=== PATIENT | male | born 1990 | race Caucasian/White ===

== ENCOUNTER 2025-07-14 11:57 | Inpatient (IN) | payer OTHER ==
[~2025-07-14] VITALS: Ht 175.3 cm; Wt 106.0 kg
[2025-07-14 12:53] LABS: PLATELET COUNT (AUTO) 230 K/uL (150-450); RED BLOOD CELL COUNT(AUTO) 4.97 MIL/uL (4.50-5.90); RED CELL DISTRIBUTION WIDTH 13.2 % (11.5-14.5); WHITE BLOOD COUNT (AUTO) 14.4 K/uL (4.5-11.0)
[2025-07-14 13:03] LABS: CALCIUM, TOTAL 8.8 mg/dL (8.8-10.5); CREATININE 1.06 mg/dL (0.60-1.30); GLOMERULAR FILTR. RATE CALC > 60 mL/min (>60); GLUCOSE,RANDOM 118 mg/dL (70-110); SODIUM SERUM 135 mmol/L (136-145); UREA NITROGEN, BLOOD 22 mg/dL (7-18)
[2025-07-14 13:09] LABS: ASPARTATE AMINOTRANSFERASE 109.0 U/L (15-37); TOTAL PROTEIN, SERUM 7.9 g/dL (6.4-8.2)
[2025-07-14] MEDS ORDERED: IOHEXOL 350 MG/ML 100 ML VIAL ONE (15:07)
[2025-07-14] MEDS ORDERED: 0.9% SODIUM CHLORIDE 10 ML SYRINGE IVP ONE (15:07)
[2025-07-14] MEDS ORDERED: SODIUM CHLORIDE 0.9% 100 ML ONE (15:07)
[2025-07-14] MEDS: SODIUM CHLORIDE 0.9% 2,000 ML IV ONE (15:32)
[2025-07-14] MEDS: ONDANSETRON HCL 4 MG/2 ML VIAL IVP ONE (15:34)
[2025-07-14] MEDS: KETOROLAC TROMETHAMINE 30 MG/ML VIAL IVP ONE (15:35)
[2025-07-14] MEDS: MORPHINE SULFATE 4 MG/ML SYRINGE IVP ONE (15:36)
[2025-07-14] MEDS ORDERED: BISACODYL 10 MG RECTAL RECTAL SUPPOSITORY PR PRN (15:45)
[2025-07-14] MEDS ORDERED: ALBUTEROL SULFATE 2.5 MG/0.5 ML NEB SOLUTION NEB PRN (15:45)
[2025-07-14] MEDS ORDERED: MAGNESIUM HYDROXIDE SUSPENSION 30 ML UDCUP PO PRN (15:45)
[2025-07-14] MEDS ORDERED: IPRATROPIUM BROMIDE 0.5 MG/2.5 ML NEB SOLUTION NEB PRN (15:45)
[2025-07-14] MEDS ORDERED: MORPHINE SULFATE 2 MG/ML SYRINGE IVP PRN (15:45)
[2025-07-14] MEDS ORDERED: ONDANSETRON HCL 4 MG/2 ML VIAL IVP PRN (15:45)
[2025-07-14 15:47] LABS: APPEARANCE,URINE HAZY (CLEAR); GLUCOSE, URINE (UA) NEGATIVE (NEGATIVE); LEUKOCYTE ESTERASE ,URINE NEGATIVE (NEGATIVE); NITRATE,URINE NEGATIVE (NEGATIVE); OCCULT BLOOD,URINE LARGE (NEGATIVE); SPECIFIC GRAVITIY, URINE 1.017 (1.003-1.030)
[2025-07-14 16:01] LABS: SQUAMOUS EPITHELIAL CELL,UR Few /LPF (None Seen)
[2025-07-14 17:08] VITALS: BP 134/88; PULSE 65; RESP 18; TEMP 98.2; O2SAT 98
[2025-07-14] MEDS: HYDROCODONE/ACETAMINOPHEN 5-325 MG TABLET PO PRN (17:33)
[2025-07-14] MEDS: MORPHINE SULFATE 4 MG/ML SYRINGE IVP PRN (18:40)
[2025-07-14 18:43] VITALS: BP 135/92; PULSE 75; RESP 20; O2SAT 99
[2025-07-14] MEDS: DOCUSATE SODIUM 100 MG CAPSULE PO SCH (19:59)
[2025-07-14 20:31] VITALS: BP 146/106; PULSE 76; RESP 18; TEMP 98.6; O2SAT 96
[2025-07-14 22:22] VITALS: BP 143/89; RESP 18; O2SAT 96
[2025-07-15] MEDS: SODIUM CHLORIDE 0.9% 1,000 ML IV SCH (02:27)
[2025-07-15 04:09] VITALS: BP 130/77; PULSE 82; RESP 18; TEMP 98.7; O2SAT 98
[2025-07-15] MEDS: MORPHINE SULFATE 4 MG/ML SYRINGE IVP ONE (04:09)
[2025-07-15 07:26] LABS: ASPARTATE AMINOTRANSFERASE 130 U/L (15-37); CALCIUM, TOTAL 7.9 mg/dL (8.8-10.5); CREATININE 1.23 mg/dL (0.60-1.30); GLOMERULAR FILTR. RATE CALC > 60 mL/min (>60); GLUCOSE,RANDOM 123 mg/dL (70-110); PLATELET COUNT (AUTO) 205 K/uL (150-450); RED BLOOD CELL COUNT(AUTO) 4.22 MIL/uL (4.50-5.90); RED CELL DISTRIBUTION WIDTH 13.4 % (11.5-14.5); SODIUM SERUM 136 mmol/L (136-145); TOTAL PROTEIN, SERUM 6.8 g/dL (6.4-8.2); UREA NITROGEN, BLOOD 22 mg/dL (7-18); WHITE BLOOD COUNT (AUTO) 13.4 K/uL (4.5-11.0)
[2025-07-15] MEDS: PANTOPRAZOLE SODIUM 40 MG DR TABLET PO SCH (08:30)
[2025-07-15 09:00] VITALS: BP 140/78; PULSE 91; RESP 18; TEMP 97.7; O2SAT 95
[2025-07-15] MEDS ORDERED: GADOTERATE MEGLUMINE 10 MMOL/20 ML VIAL IVP ONE (09:53)
[2025-07-15] MEDS: ACETAMINOPHEN 325 MG TABLET PO PRN (20:03)
[2025-07-15 20:57] VITALS: BP 128/83; PULSE 106; RESP 18; TEMP 100.6; O2SAT 96
[2025-07-16 01:25] VITALS: BP 117/74; PULSE 86; RESP 18; TEMP 99.6; O2SAT 96
[2025-07-16 05:44] VITALS: BP 134/69; PULSE 95; RESP 18; TEMP 100.6; O2SAT 97
[2025-07-16 06:13] LABS: PLATELET COUNT (AUTO) 185 K/uL (150-450); RED BLOOD CELL COUNT(AUTO) 3.77 MIL/uL (4.50-5.90); RED CELL DISTRIBUTION WIDTH 13.2 % (11.5-14.5); WHITE BLOOD COUNT (AUTO) 13.4 K/uL (4.5-11.0)
[2025-07-16 06:31] LABS: CALCIUM, TOTAL 7.9 mg/dL (8.8-10.5); CREATININE 1.12 mg/dL (0.60-1.30); GLOMERULAR FILTR. RATE CALC > 60 mL/min (>60); GLUCOSE,RANDOM 105 mg/dL (70-110); SODIUM SERUM 136 mmol/L (136-145); UREA NITROGEN, BLOOD 21 mg/dL (7-18)
[2025-07-16 09:13] VITALS: BP 117/69; PULSE 102; RESP 20; TEMP 99.1; O2SAT 95
[2025-07-16 19:44] VITALS: BP 126/69; PULSE 100; RESP 18; TEMP 100.6; O2SAT 96
[2025-07-16 22:17] VITALS: BP 127/63; PULSE 90; RESP 19; TEMP 99; O2SAT 95
[2025-07-17 04:00] VITALS: BP 131/76; PULSE 90; RESP 18; TEMP 98.8; O2SAT 97
[2025-07-17 06:08] LABS: PLATELET COUNT (AUTO) 187 K/uL (150-450); RED BLOOD CELL COUNT(AUTO) 3.50 MIL/uL (4.50-5.90); RED CELL DISTRIBUTION WIDTH 13.0 % (11.5-14.5); WHITE BLOOD COUNT (AUTO) 12.0 K/uL (4.5-11.0)
[2025-07-17 06:37] LABS: ASPARTATE AMINOTRANSFERASE 49 U/L (15-37); CALCIUM, TOTAL 7.9 mg/dL (8.8-10.5); CREATININE 0.97 mg/dL (0.60-1.30); GLOMERULAR FILTR. RATE CALC > 60 mL/min (>60); GLUCOSE,RANDOM 104 mg/dL (70-110); SODIUM SERUM 135 mmol/L (136-145); TOTAL PROTEIN, SERUM 6.7 g/dL (6.4-8.2); UREA NITROGEN, BLOOD 17 mg/dL (7-18)
[2025-07-17 08:51] VITALS: BP 141/86; PULSE 87; RESP 18; TEMP 98.7; O2SAT 99
[2025-07-17 20:00] VITALS: BP 144/78; PULSE 78; RESP 18; TEMP 98.4; O2SAT 95
[2025-07-17] MEDS: ZOLPIDEM TARTRATE 5 MG TABLET PO PRN (20:00)
[2025-07-18 05:17] VITALS: BP 135/85; PULSE 76; RESP 20; TEMP 98.8; O2SAT 98
[2025-07-18 09:00] VITALS: BP 139/76; PULSE 87; RESP 18; TEMP 100; O2SAT 98
[2025-07-18 20:00] VITALS: BP 139/85; PULSE 83; RESP 18; TEMP 98.8; O2SAT 98
[2025-07-19 04:00] VITALS: BP 127/80; PULSE 76; RESP 18; TEMP 98.2; O2SAT 96
[2025-07-19 07:38] VITALS: BP 127/75; PULSE 90; RESP 18; TEMP 99; O2SAT 97
[2025-07-19 07:59] LABS: PLATELET COUNT (AUTO) 296 K/uL (150-450); RED BLOOD CELL COUNT(AUTO) 3.75 MIL/uL (4.50-5.90); RED CELL DISTRIBUTION WIDTH 13.3 % (11.5-14.5); WHITE BLOOD COUNT (AUTO) 10.0 K/uL (4.5-11.0)
[2025-07-19 08:12] LABS: ASPARTATE AMINOTRANSFERASE 44 U/L (15-37); CALCIUM, TOTAL 8.2 mg/dL (8.8-10.5); CREATININE 0.87 mg/dL (0.60-1.30); GLOMERULAR FILTR. RATE CALC > 60 mL/min (>60); GLUCOSE,RANDOM 97 mg/dL (70-110); SODIUM SERUM 133 mmol/L (136-145); TOTAL PROTEIN, SERUM 7.2 g/dL (6.4-8.2); UREA NITROGEN, BLOOD 16 mg/dL (7-18)
[2025-07-19 19:25] VITALS: BP 128/74; PULSE 99; RESP 18; TEMP 101.7; O2SAT 95
[2025-07-19] MEDS: HEPARIN SODIUM,PORCINE 5,000 UNITS/ML VIAL SQ SCH (22:29)
[2025-07-20 04:53] VITALS: BP 131/74; PULSE 84; RESP 18; TEMP 99.9; O2SAT 95
[2025-07-20 05:08] LABS: QUANTIFERON+, Nil Value 0.38 IU/mL; QUANTIFERON+,Mitogen Value 4.61 IU/mL; QUANTIFERON+,TB1 Antigen Value 1.54 IU/mL; QUANTIFERON+,TB2 Antigen Value 1.62 IU/mL; QUANTIFERON, TB GOLD PLUS Positive (Negative)
[2025-07-20 08:00] VITALS: BP 131/83; PULSE 64; RESP 20; TEMP 99.9; O2SAT 96
[2025-07-20] MEDS ORDERED: IOHEXOL 350 MG/ML 100 ML VIAL ONE (11:18)
[2025-07-20 21:18] VITALS: BP 125/72; PULSE 93; RESP 18; TEMP 100.4; O2SAT 96
[2025-07-21 05:10] VITALS: BP 118/70; PULSE 86; RESP 18; TEMP 98.1; O2SAT 95
[2025-07-21 07:09] LABS: APPEARANCE,URINE CLEAR (CLEAR); GLUCOSE, URINE (UA) NEGATIVE (NEGATIVE); LEUKOCYTE ESTERASE ,URINE NEGATIVE (NEGATIVE); NITRATE,URINE NEGATIVE (NEGATIVE); OCCULT BLOOD,URINE LARGE (NEGATIVE); SPECIFIC GRAVITIY, URINE 1.033 (1.003-1.030)
[2025-07-21 08:00] VITALS: BP 124/70; PULSE 85; RESP 18; TEMP 99.7; O2SAT 100
[2025-07-21 09:36] LABS: PLATELET COUNT (AUTO) 403 K/uL (150-450); RED BLOOD CELL COUNT(AUTO) 3.85 MIL/uL (4.50-5.90); RED CELL DISTRIBUTION WIDTH 13.7 % (11.5-14.5); WHITE BLOOD COUNT (AUTO) 13.5 K/uL (4.5-11.0)
[2025-07-21 09:40] LABS: CALCIUM, TOTAL 8.6 mg/dL (8.8-10.5); CREATININE 0.80 mg/dL (0.60-1.30); GLOMERULAR FILTR. RATE CALC > 60 mL/min (>60); GLUCOSE,RANDOM 88 mg/dL (70-110); SODIUM SERUM 131 mmol/L (136-145); UREA NITROGEN, BLOOD 19 mg/dL (7-18)
[2025-07-21 16:00] VITALS: BP 130/76; PULSE 86; RESP 18; TEMP 99.5; O2SAT 97
[2025-07-21 20:00] VITALS: BP 131/78; PULSE 87; RESP 18; TEMP 100.6; O2SAT 96
[2025-07-21 22:00] VITALS: TEMP 97.9
[2025-07-22 04:00] VITALS: BP 131/80; PULSE 83; RESP 18; TEMP 98.8; TEMP 99.9; O2SAT 97
[2025-07-22 07:15] LABS: PLATELET COUNT (AUTO) 492 K/uL (150-450); RED BLOOD CELL COUNT(AUTO) 3.85 MIL/uL (4.50-5.90); RED CELL DISTRIBUTION WIDTH 13.6 % (11.5-14.5); WHITE BLOOD COUNT (AUTO) 10.8 K/uL (4.5-11.0)
[2025-07-22 07:35] LABS: ASPARTATE AMINOTRANSFERASE 42 U/L (15-37); CALCIUM, TOTAL 8.6 mg/dL (8.8-10.5); CREATININE 1.04 mg/dL (0.60-1.30); GLOMERULAR FILTR. RATE CALC > 60 mL/min (>60); GLUCOSE,RANDOM 100 mg/dL (70-110); SODIUM SERUM 133 mmol/L (136-145); TOTAL PROTEIN, SERUM 7.7 g/dL (6.4-8.2); UREA NITROGEN, BLOOD 19 mg/dL (7-18)
[2025-07-22 08:58] VITALS: BP 119/71; PULSE 84; RESP 18; TEMP 98.6; O2SAT 96
[2025-07-22] MEDS ORDERED: MEBROFENIN TC99M/MCL ISOTOPE 1 EA INJ INJ ONE (14:30)
[2025-07-22 18:29] VITALS: BP 134/76; PULSE 90; RESP 18; TEMP 100.8; O2SAT 95
[2025-07-22 19:52] VITALS: BP 131/74; PULSE 86; RESP 18; TEMP 99.7; O2SAT 96
[2025-07-23 04:52] VITALS: BP 110/75; PULSE 81; RESP 18; TEMP 98.6; O2SAT 98
[2025-07-23 08:00] VITALS: BP 123/71; PULSE 81; RESP 17; TEMP 97.9; O2SAT 96
[2025-07-23 16:00] VITALS: BP 122/64; PULSE 84; RESP 19; TEMP 99.3; O2SAT 97
[2025-07-23 20:00] VITALS: BP 131/70; PULSE 90; RESP 18; TEMP 98.1; O2SAT 95
[2025-07-24 04:00] VITALS: BP 123/73; PULSE 77; RESP 18; TEMP 98.4; O2SAT 95
[2025-07-24 07:59] VITALS: BP 119/76; PULSE 77; RESP 18; TEMP 98.4; O2SAT 98
== END 2025-07-24 16:10 | DRG 698 ==
LOC: EMS 11:57 → EDBD 15:37 → EDH 15:37 → CMPBEDREQ 15:50 → 6S 16:50
PROVIDERS: ADMIT Internal Medicine; ATTEND Internal Medicine
DX: I82.3 Embolism and thrombosis of renal vein (principal); I82.220 Acute embolism and thrombosis of inferior vena cava; C64.2 Malignant neoplasm of left kidney, except renal pelvis; I89.8 Other specified noninfective disorders of lymphatic vessels and lymph nodes; D72.829 Elevated white blood cell count, unspecified; F17.210 Nicotine dependence, cigarettes, uncomplicated; R65.10 Systemic inflammatory response syndrome (SIRS) of non-infectious origin without acute organ dysfunction; J45.909 Unspecified asthma, uncomplicated; J98.11 Atelectasis; N13.30 Unspecified hydronephrosis; R31.0 Gross hematuria; N28.89 Other specified disorders of kidney and ureter; R73.9 Hyperglycemia, unspecified; K80.20 Calculus of gallbladder without cholecystitis without obstruction; Z93.6 Other artificial openings of urinary tract status
CPT/HCPCS: 70553; 71260; 71275; 72193; 74160; 74176; 76700; 78226; 80048; 80053; 80076; 81001; 82271; 83735; 84145; 85025; 85610; 85730; 86480; 87040; 87566; 93306; 96361; 96374; 96375; 96376; 99285; A9537; J1644; J1885; J2270; J2405; J7030; J7050; 36415-L1; 36415-TC; 87556